=== PATIENT | female | born 1995 | race Caucasian/White ===

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

== ENCOUNTER → 2017-06-05 | Outpatient (CLI) | payer BC ==
[~2017-06-05] VITALS: Ht 170.2 cm; Wt 99.2 kg
[2017-06-05 15:47] VITALS: BP 121/83; PULSE 84; Ht 170.2 cm; Wt 99.2 kg
== END | disposition home or self-care (01) ==
LOC: C.NEUR 15:31
PROVIDERS: ATTEND Internal Medicine Pulmonary Disease
DX: G47.10 Hypersomnia, unspecified (principal); R44.2 Other hallucinations; R53.83 Other fatigue